=== PATIENT | female | born 1990 | race Two or more races ===

== ENCOUNTER 2017-07-01 18:08 | Emergency (ER) | payer OTHER ==
[~2017-07-01] VITALS: Ht 154.9 cm; Wt 64.0 kg
[~2017-07-01 18:08] MED LIST: Motrin PO; Percocet 5/325,Endoc PO
[2017-07-01 18:45] LABS: HEMATOCRIT 35.5 % (36.0-46.0); MCH 27.6 PG (29.0-34.0); MCHC 32.4 G/DL (30.0-36.0); MCV 85.3 FL (83-99); MEAN PLAT.VOLUME 9.5 uM^3 (9.5-12.4); PLATELET COUNT 261 K/uL (156-360); RBC DIS.WIDTH-CV 14.4 % (11.8-14.6); RBC DIS.WIDTH-SD 44.5 % (39-53); RED BLOOD COUNT 4.16 M/uL (3.80-5.20); WHITE BLOOD COUNT 7.6 K/uL (4.1-10.2)
[2017-07-01 18:55] LABS: CHLORIDE 108 mEq/L (99-109); POTASSIUM 3.8 mEq/L (3.7-5.4); SODIUM 140 mEq/L (136-147)
[2017-07-01 18:57] LABS: GLUCOSE 85 mg/dL (70-99)
[2017-07-01 18:59] LABS: ANION GAP 9 MEQ/L (2-14)
[2017-07-01 19:01] LABS: GFR ESTIMATE (CALCULATED) > 59 mL/min/
[2017-07-01 19:02] LABS: UREA NITROGEN (BUN) 8 mg/dL (9-23)
[2017-07-01 19:09] LABS: QUANTITATIVE HCG 366.4 MIU/ML
[2017-07-01 19:12] LABS: ADD MIUA? YES; BILIRUBIN NEGATIVE; BLOOD NEGATIVE; COLOR YELLOW ((YELLOW)); GLUCOSE (STRIP) NEGATIVE; KETONES 5; LEUKOCYTES NEGATIVE; NITRITE NEGATIVE; PROTEIN (STRIP) NEGATIVE; SPECIFIC GRAVITY 1.026 (1.000-1.030)
[2017-07-01 19:20] LABS: BACTERIA RARE /HPF; EPITHELIAL CELLS 1+ /HPF; MUCUS TRACE /LPF; RED BLOOD CELLS 0-5 /HPF (0-5); WHITE BLOOD CELLS 0-5 /HPF (0-5)
[2017-07-01] MEDS ORDERED: ZOFRAN ODT4 MG PO (20:45)
[2017-07-01 21:37] VITALS: BP 120/72
== END 2017-07-01 21:37 | disposition home or self-care (01) ==
LOC: RME 18:08 → EME 18:08 → RME 21:37
PROVIDERS: Physician Assistant
DX: O20.0 Threatened abortion (principal); R11.0 Nausea; R42 Dizziness and giddiness; Z87.891 Personal history of nicotine dependence
CPT/HCPCS: 76801; 80048; 81003; 84702; 85027; 99281; 99284

== ENCOUNTER 2017-07-17 17:57 | Day surgery (SDC) | payer OTHER ==
[~2017-07-17] VITALS: Ht 154.9 cm; Wt 64.7 kg
[~2017-07-17 17:57] MED LIST changes: +ZOFRAN ODT4 MG PO
[2017-07-17 18:35] VITALS: BP 130/73
[2017-07-17 20:39] LABS: EOSINOPHIL (%) 1.6 % (0-5); EOSINOPHIL COUNT 0.1 K/uL (0-0.3); HEMATOCRIT 31.5 % (36.0-46.0); IMMATURE GRANULOCYTE (%) 0.3 % (0.0-0.7); INSTRUMENT ABS NEUTROPHIL CT 4.3 K/uL; LYMPHOCYTE COUNT 2.1 K/uL (1.0-2.8); MCH 27.7 PG (29.0-34.0); MONOCYTE (%) 5.6 % (3-12); MONOCYTE COUNT 0.4 K/uL (0-0.8); NEUTROPHIL (%) 61.7 % (45-76); NEUTROPHIL COUNT 4.3 K/uL (1.8-6.4); PLATELET COUNT 261 K/uL (156-360); RBC DIS.WIDTH-CV 14.5 % (11.8-14.6); RBC DIS.WIDTH-SD 44.2 % (39-53); RED BLOOD COUNT 3.75 M/uL (3.80-5.20)
[2017-07-17 20:55] VITALS: BP 114/61
[2017-07-17] MEDS ORDERED: MOTRIN800 MG PO (21:31)
[2017-07-17] MEDS ORDERED: PERCOCET 5/31 TABLET PO (21:31)
[2017-07-18 00:33] VITALS: BP 119/65
[2017-07-18 03:26] VITALS: BP 115/57
== END 2017-07-18 09:21 | disposition home or self-care (01) ==
LOC: SDC 17:57 → 2EASTP 18:05
PROVIDERS: Obstetrics & Gynecology
DX: O00.109 Unspecified tubal pregnancy without intrauterine pregnancy (principal); N80.3 Endometriosis of pelvic peritoneum; K66.0 Peritoneal adhesions (postprocedural) (postinfection); F41.9 Anxiety disorder, unspecified; Z87.891 Personal history of nicotine dependence
CPT/HCPCS: 85025; 85027; 86850; 86900; 86901; 88305; G0378; J0131; J0330; J0690; J1100; J1170; J1885; J2250; J2405; J2710; J3010; J7120